=== PATIENT | female | born 1985 | race Caucasian/White ===

== ENCOUNTER 2025-02-23 12:43 | Outpatient (CLI) | payer BC, SELFPAY ==
--- NOTE | 2025-02-23 13:00 | CRLHL7_ITS ---
For Patients: As a result of the Cures Act, medical imaging exams and procedure reports are released immediately into your electronic medical record. You may view this report before your referring provider. If you have questions, please contact your health care provider. OB ULTRASOUND INDICATION: Dating and viability. TECHNIQUE: Real time grayscale imaging of the fetus was performed. Transvaginal. Transvaginal imaging performed to better demonstrate the endometrium and ovaries. LMP: 12/13/2024. JORDAN by LMP: 09/19/2025. GA: 10 w, 2 d. Previous US: No. CRL: 3.96 cm. 10 w 6 d. JORDAN: 09/15/2025. FHR: 159 BPM. Gestational sac: 6.4 cm. Appears within normal limits. Yolk sac: 4.4 mm. Appears within normal limits. Right ovary: 2.3 x 1.6 x 2.0 cm. CL. Left ovary: 2.5 x 1.5 x 2.1 cm. IMPRESSION: 1. Single living intrauterine measures 10 weeks 6 days with sonographic due date 09/15/2025. 2. Right inferior subchorionic hemorrhage measures 0.8 x 2.4 x 1.5 cm. 3. Corpus luteal cyst right ovary. Liang Yañez M.D. Diagnostic Radiologist [email or web address] ANDRES/[email or web address] rhodes/Dictated by: Liang Yañez MD @ 02/23/2025 4:26:00 PM (Electronically Signed)
== END 2025-02-23 12:44 | disposition home or self-care (01) ==
LOC: US 12:43
PROVIDERS: Visit Provider Physician Assistant
DX: O34.81 Maternal care for other abnormalities of pelvic organs, first trimester (principal); N83.11 Corpus luteum cyst of right ovary; O20.9 Hemorrhage in early pregnancy, unspecified; O09.521 Supervision of elderly multigravida, first trimester; Z3A.10 10 weeks gestation of pregnancy
CPT/HCPCS: 76817; 83021; 86592; 86703; 86704; 86706; 86762; 86787; 86803; 86850; 86900; 86901; 87086; 87340; 87491; 87591

== ENCOUNTER 2025-04-19 09:58 | Outpatient (CLI) | payer BC, SELFPAY | END 2025-04-19 09:59 | disposition home or self-care (01) | LOC: US 09:58 | PROVIDERS: Visit Provider Obstetrics & Gynecology | DX: O09.522 Supervision of elderly multigravida, second trimester (principal); Z3A.18 18 weeks gestation of pregnancy | CPT/HCPCS: 76811 ==